=== PATIENT | female | born 1935 | race Caucasian/White ===

== ENCOUNTER 2016-12-31 15:16 | Emergency (ER) | payer OTHER ==
--- NOTE | ~2016-12-31 | CR127 ---
[facility]. [facility] A Service [facility] RADIOLOGY TEXT RESULTS PATIENT: GIUSEPPE LEMUS LOCATION: SED : 33 UNIT #: [id number] AGE: [address]: Brianne Bowie APRN SEX: F ORDER DR: [id number] [address] [address] [id number] MR#: [id number] #: [id number] NAME: GIUSEPPE LEMUS. : 1935 SEX: F STUDY DATE/TIME: 12/31/2016 14:43 UNIT: SED ROOM: STUDY DESCRIPTION: CR Foot Complete Min 3 View Rt Attending Physician: Brianne Bowie A.P.R.N. Ordering Physician: Brianne Raines A.P.R.N. Primary Care Physician: Petra Santiago M.D. MEDICAL IMAGING REPORT This report is preliminary unless electronic signature is present. EXAM Right foot. DATE OF EXAM 12/31/2016 INDICATIONS 81-year-old female with history of trauma, right great toe injury. Smashed big toe with a trailer today. Pain and swelling. REPORT 3 views f the right great toe. COMPARISON No comparisons FINDINGS There is a complete transversely oriented distal tufted fracture of the great toe on the right. No significant displacement. There is diffuse soft tissue swelling. There is bandage artifact associated with the first and second digits. Imaging features also are most characteristic of a distal tuft fracture transversely oriented through the distal tuft of the second digit with associated soft tissue swelling. No retained opaque foreign body or intraarticular extension. IMPRESSION 1. Distal tuft fractures of the first and second digits with associated soft tissue swelling. Bandage artifact present. No definite interarticular extension. 2. Degenerative changes in the midfoot and at the tarsometatarsal junctions. [facility] A Service [facility] RADIOLOGY TEXT RESULTS PATIENT: GIUSEPPE LEMUS LOCATION: SED : 33 UNIT #: [id number] AGE: [address]: Brianne Bowie APRN SEX: F ORDER DR: Dictated by... Morris Bray M.D. THIS IS AN ELECTRONICALLY VERIFIED REPORT Morris Bray M.D. at 01/01/2017 10:17 AM Louis TD: 12/31/2016 19:06 JOB #: [id number] MEDICAL IMAGING REPORT
[~2016-12-31 15:16] MED LIST: COZAAR
== END 2016-12-31 16:38 | disposition home or self-care (01) ==
LOC: SED 15:16
DX: S91.114A Laceration without foreign body of right lesser toe(s) without damage to nail, initial encounter (principal); S91.111A Laceration without foreign body of right great toe without damage to nail, initial encounter; W22.8XXA Striking against or struck by other objects, initial encounter; I10 Essential (primary) hypertension; Y92.009 Unspecified place in unspecified non-institutional (private) residence as the place of occurrence of the external cause
CPT/HCPCS: 12002; 73630; 99283